=== PATIENT | female | born 1975 | race Caucasian/White ===

== ENCOUNTER 2017-12-08 12:42 | Emergency (ER) | payer MEDICAID ==
[~2017-12-08] VITALS: Ht 175.3 cm; Wt 97.1 kg
[~2017-12-08 12:42] MED LIST: AZITHROMYCIN250 MG ORAL; BCP; CYCLOBENZAPRINE10 MG ORAL; IBUPROFEN600 MG ORAL
[2017-12-08 12:55] VITALS: BP 110/69
[2017-12-08] MEDS ORDERED: TYLENOL EXTRA500 MG ORAL (13:07)
[2017-12-08] MEDS ORDERED: PROMETHAZI6.25 MG/1 ORAL (13:07)
[2017-12-08] MEDS ORDERED: FLUTICASONE PRO16 G1 NASAL (13:07)
[2017-12-08] MEDS ORDERED: LORATADINE10 M2 PO (13:07)
--- NOTE | 2017-12-08 13:07 | Emergency Room Report ---
History of Present Illness General Chief Complaint: Flu Like Symptoms Source: Patient Present Illness HPI 42-year-old female patient presents ER complaining of runny nose, cough, sore throat for the past few days. Reports that initially began as allergy symptoms with runny nose and progressed to cough with sputum, and sore throat. Reports HUDSON symptoms recently, denies vision changes, reports pain in sinuses causing HUDSON. Denies vertigo. Reports hx of allergies. Denies fever. Denies contacts with similar symptoms. Denies vomiting, chest pain, shortness of breath. Denies calf pain or neck pain. Denies history of contacts with similar symptoms. Denies vomiting, diarrhea. Denies abdominal pain, dysuria, hematuria. Denies hx of asthma or IA. Allergies: Coded Allergies: NO KNOWN ALLERGIES (Unverified Allergy, Unknown, 04/21/15) Patient History Past Medical History: see triage record Last Menstrual Period: 11/27/17 Reviewed Nursing Documentation: PMH: Agreed; PSxH: Agreed Nursing Documentation-PMH Past Medical History: No Stated History Review of Systems All Other Systems: negative except mentioned in HPI Physical Exam Vital Signs Date Time Temp Pulse Resp B/P (MAP) Pulse Ox O2 Delivery O2 Flow Rate FiO2 12/08/17 12:45 97.8 78 15 110/69 95 Room Air 97.9 Sp02 EP Interpretation: reviewed, normal General Appearance: well appearing, no apparent distress, alert, GCS 15, non- toxic Head: normocephalic, atraumatic Eyes: bilateral eye normal inspection, bilateral eye PERRL ENT: hearing grossly normal, normal pharynx, no angioedema, normal voice, TMs + canals normal, uvula midline, moist mucus membranes, nasal congestion Neck: full range of motion Respiratory: lungs clear, normal breath sounds, no rhonchi, no respiratory distress, no accessory muscle use, no wheezing, speaking full sentences Cardiovascular #1: regular rate, rhythm, no edema Gastrointestinal: non tender, soft, no mass, non-distended, no guarding, no rebound Genitourinary: no CVA tenderness Musculoskeletal: back normal, digits/nails normal, gait/station normal, normal range of motion, non-tender, no calf tenderness, Everardo's Sign negative Neurologic: alert, oriented x3, responsive, motor strength/tone normal, sensory intact Psychiatric: mood/affect normal Skin: no rash Lymphatic: no adenopathy Medical Decision Making PA Attestation Dr. Javier is my supervising Physician whom patient management has been discussed with. Diagnostic Impression: Primary Impression: Upper respiratory infection ER Course Pt presents to ED c/o sore throat, cough, headache. DDX considered but are not limited to influenza, viral URI, pneumonia, strep throat, rhinitis, sinusitis, otitis media. VITAL SIGNS are WNL, patient is afebrile. ER COURSE: Lungs clear to auscultation, no wheezes, rhonci or rales. patient afebrile. Low suspicion for pneumonia, will not order CXR at this time. no tonsillar exudates, no pharyngeal erythema, history of cough, no fever, no stridor, uvula midline, low suspicion for peritonsillar abscess. Likely viral etiology of symptoms. Symptomatic treatment. drink plenty of fluids. Salt water gargles for sore throat. Followup with PCP for further treatment and/or referral as needed. DISCHARGE: -Rx given for Claritin -Rx given for Tylenol/Acetaminophen -Rx given for Promethazine syrup for cough sx. -Rx given for fluticasone At this time pt is stable for d/c to home. Patient is resting comfortably, in no acute distress, nontoxic appearing. Patient to take medications as instructed Will provide with patient care instructions and any necessary prescriptions. Care plan and follow-up instructions provided. Patient instructed to follow-up with primary care provider in 3 - 5 days. Patient questions asked and answered. Patient reports understanding and agreement to treatment plan. ER precautions given. Patient instructed to return to ER immediately for any new or worsening of symptoms including but not limited to increasing SOB, persistent fever, intractable vomiting. - Please note that this Emergency Department Report was dictated using [employer] hand technology software, occasionally this can lead to erroneous entry secondary to interpretation by the dictation equipment. Last Vital Signs Date Time Temp Pulse Resp B/P (MAP) Pulse Ox O2 Delivery O2 Flow Rate FiO2 12/08/17 12:55 78 15 Room Air 12/08/17 12:55 97.9 110/69 98 97.9 Disposition: HOME, SELF-CARE Condition: Stable Scripts Fluticasone Propionate* (FLUTICASONE PROPIONATE*) 16 Gm [place].susp 1 SPRAY NASAL TWICE A DAY, #16 GM Prov: NimoCarlos 12/08/17 Promethazine Hcl (PROMETHAZINE HCL*) 6.25 Mg/5 Ml Syrup 5 ML ORAL Q8H, #120 ML 0 Refills Prov: Carlos Suero 12/08/17 Loratadine (LORATADINE) 10 Mg Tablet 10 MG PO DAILY, #30 TAB Prov: Carlos Suero 12/08/17 Acetaminophen* (TYLENOL EXTRA STRENGTH*) 500 Mg Tablet 500 MG ORAL Q8H PRN for Prn Headache/Temp > 101, #30 TAB 0 Refills Prov: Carlos Suero 12/08/17 Patient Instructions: Allergies, [id number], Cough, Adult, [id number], Sore Throat, Owui-pj-Lusp, Upper Respiratory Infection, Adult, Diyi-av-Cjoo Additional Instructions: Followup with primary care provider in 3 -5 days. Take medications as directed. Patient questions asked and answered. ER precautions given, patient instructed to return to ER immediately for any new or worsening of symptoms. Carlos Suero Dec 08, 2017 13:07
[2017-12-08 13:12] VITALS: BP 110/69
== END 2017-12-08 13:12 | disposition home or self-care (01) ==
LOC: EMR 13:05
DX: J06.9 Acute upper respiratory infection, unspecified (principal)
CPT/HCPCS: 99284

== ENCOUNTER 2018-01-19 08:38 | Emergency (ER) | payer MEDICAID ==
[~2018-01-19] VITALS: Ht 175.3 cm; Wt 95.3 kg
[~2018-01-19 08:38] MED LIST changes: +FLUTICASONE PRO16 G1 NASAL; +LORATADINE10 M2 PO; +PROMETHAZI6.25 MG/1 ORAL; +TYLENOL EXTRA500 MG ORAL
[2018-01-19] MEDS ORDERED: MULTIVITAMINS1 EAC8 ORAL (08:54)
--- NOTE | 2018-01-19 08:57 | Emergency Room Report ---
History of Present Illness General Chief Complaint: Chest Pain Source: Patient Present Illness HPI Patient presents with complaints of pain to the left sternal border mid chest area that has been off-and-on over the past 3 days Patient reports that she is pain-free at this time She reports that when she was getting in arguments with her the pain would come on And slowly dissipate Denies any pleurisy or shortness of breath denies any vomiting or diarrhea denies any back or flank pain Allergies: Coded Allergies: NO KNOWN ALLERGIES (Unverified Allergy, Unknown, 04/21/15) Patient History Past Medical History: see triage record Pertinent Family History: none Last Menstrual Period: 1st week of Sep Reviewed Nursing Documentation: PMH: Agreed; PSxH: Agreed Nursing Documentation-PMH Past Medical History: No Stated History Review of Systems All Other Systems: negative except mentioned in HPI Physical Exam Vital Signs Date Time Temp Pulse Resp B/P (MAP) Pulse Ox O2 Delivery O2 Flow Rate FiO2 01/19/18 08:45 98.3 73 14 108/67 98 Room Air 98.2 Sp02 EP Interpretation: reviewed, normal General Appearance: well appearing, no apparent distress Head: normocephalic, atraumatic Eyes: bilateral eye PERRL, bilateral eye EOMI ENT: hearing grossly normal, normal pharynx, TMs + canals normal, uvula midline Neck: full range of motion, supple, no meningismus, no bony tend Respiratory: lungs clear, normal breath sounds, no rhonchi, no respiratory distress, no retraction, no accessory muscle use Cardiovascular #1: normal peripheral pulses, regular rate, rhythm, no edema, no gallop, no JVD, no murmur Gastrointestinal: normal bowel sounds, non tender, soft, no mass, no organomegaly, non-distended, no guarding, no hernia, no pulsatile mass, no rebound Genitourinary: no CVA tenderness Musculoskeletal: normal inspection Neurologic: oriented x3, responsive, sales consulting director III-XII nml as tested, motor strength/ tone normal, sensory intact Psychiatric: mood/affect normal Skin: normal color, no rash, warm/dry, palpation normal Lymphatic: normal inspection, no adenopathy Medical Decision Making Diagnostic Impression: Primary Impression: Chest pain ER Course Patient is a fairly complex patient with multiple differential to consideration including but not limited to cardiac cardiopulmonary and vascular emergencies Patient's EKG and blood work is appropriate patient remains Asymptomatic in the emergency room And at this time stable for initial conservative outpatient follow-up Labs Test 01/19/18 09:00 White Blood Count 8.9 K/UL (4.8-10.8) Red Blood Count 4.66 M/UL (4.20-5.40) Hemoglobin 14.1 G/DL (12.0-16.0) Hematocrit 41.6 % (37.0-47.0) Mean Corpuscular Volume 89 FL (80-99) Mean Corpuscular Hemoglobin 30.2 PG (27.0-31.0) Mean Corpuscular Hemoglobin Concent 33.8 G/DL (32.0-36.0) Red Cell Distribution Width 11.5 % (11.6-14.8) Platelet Count 230 K/UL (150-450) Mean Platelet Volume 8.6 FL (6.5-10.1) Neutrophils (%) (Auto) 63.2 % (45.0-75.0) Lymphocytes (%) (Auto) 24.2 % (20.0-45.0) Monocytes (%) (Auto) 6.7 % (1.0-10.0) Eosinophils (%) (Auto) 4.9 % (0.0-3.0) Basophils (%) (Auto) 0.9 % (0.0-2.0) Sodium Level 140 MMOL/L (136-145) Potassium Level 3.5 MMOL/L (3.5-5.1) Chloride Level 107 MMOL/L (98-107) Carbon Dioxide Level 24 MMOL/L (21-32) Anion Gap 9 mmol/L (5-15) Blood Urea Nitrogen 18 mg/dL (7-18) Creatinine 0.7 MG/DL (0.55-1.30) Estimat Glomerular Filtration Rate > 60 mL/min (>60) Glucose Level 99 MG/DL (74-106) Calcium Level 8.8 MG/DL (8.5-10.1) Total Bilirubin 0.4 MG/DL (0.2-1.0) Aspartate Amino Transf (AST/SGOT) 15 U/L (15-37) Alanine Aminotransferase (ALT/SGPT) 24 U/L (12-78) Alkaline Phosphatase 97 U/L (46-116) Total Creatine Kinase 62 U/L (26-308) Creatine Kinase MB 1.3 NG/ML (0.0-3.6) Creatine Kinase MB Relative Index 2.0 Troponin I 0.000 ng/mL (0.000-0.056) Total Protein 7.3 G/DL (6.4-8.2) Albumin 3.2 G/DL (3.4-5.0) Globulin 4.1 g/dL Albumin/Globulin Ratio 0.8 (1.0-2.7) EKG Diagnostic Results Rate: normal Rhythm: NSR ST Segments: no acute changes Rhythm Strip Diag. Results EP Interpretation: yes Rate: 67 Rhythm: NSR, no PVC's, no ectopy Last Vital Signs Date Time Temp Pulse Resp B/P (MAP) Pulse Ox O2 Delivery O2 Flow Rate FiO2 01/19/18 08:45 98.3 73 14 108/67 98 Room Air 98.2 Status: improved Disposition: HOME, SELF-CARE Condition: Improved Additional Instructions: Patient is provided with the discharge instructions notified to follow up with primary doctor in the next 2-3 days otherwise return to the er with any worsening symptoms. Please note that this report is being documented using [employer] technology. This can lead to erroneous entry secondary to incorrect interpretation by the dictating instrument. Lindy Rodriguez DO Jan 19, 2018 08:57
[2018-01-19 09:45] LABS: BASOPHILS % (AUTO) 0.9 % (0.0-2.0); EOSINOPHILS % (AUTO) 4.9 % (0.0-3.0); HEMATOCRIT 41.6 % (37.0-47.0); HEMOGLOBIN 14.1 G/DL (12.0-16.0); LYMPHOCYTES % (AUTO) 24.2 % (20.0-45.0); MEAN CORPUSCULAR VOLUME 89 FL (80-99); MONOCYTES % (AUTO) 6.7 % (1.0-10.0); NEUTROPHILS % (AUTO) 63.2 % (45.0-75.0); PLATELET COUNT 230 K/UL (150-450); RED BLOOD COUNT 4.66 M/UL (4.20-5.40); RED CELL DISTRIBUTION WIDTH 11.5 % (11.6-14.8); WHITE BLOOD COUNT 8.9 K/UL (4.8-10.8)
[2018-01-19 09:47] LABS: ANION GAP 9 mmol/L (5-15); BLOOD UREA NITROGEN 18 mg/dL (7-18); CALCIUM 8.8 MG/DL (8.5-10.1); CARBON DIOXIDE 24 MMOL/L (21-32); CHLORIDE 107 MMOL/L (98-107); CREATININE 0.7 MG/DL (0.55-1.30); POTASSIUM 3.5 MMOL/L (3.5-5.1); SODIUM 140 MMOL/L (136-145)
[2018-01-19 10:00] LABS: ALANINE AMINOTRANSFERASE 24 U/L (12-78); ALBUMIN 3.2 G/DL (3.4-5.0); ALBUMIN/GLOBULIN RATIO 0.8 (1.0-2.7); ALKALINE PHOSPHATASE 97 U/L (46-116); ASPARTATE AMINO TRANSFERASE 15 U/L (15-37); BILIRUBIN,TOTAL 0.4 MG/DL (0.2-1.0); CKMB 1.3 NG/ML (0.0-3.6); CREATINE KINASE 62 U/L (26-308)
[2018-01-19 10:03] VITALS: BP 116/45
[2018-01-19 10:10] VITALS: BP 116/45
--- NOTE | 2018-01-20 19:56 | Cardiology Report ---
APPROVED REPORT EKG Measurement Heart [id number] Normal sinus rhythm Nonspecific ST abnormality Abnormal ECG
== END 2018-01-19 10:10 | disposition home or self-care (01) ==
LOC: EMR 09:17
DX: R07.9 Chest pain, unspecified (principal)
CPT/HCPCS: 36415; 80053; 82550; 82553; 84484; 85025; 93005; 99284

== ENCOUNTER 2018-05-28 17:54 | Emergency (ER) | payer MEDICAID ==
[~2018-05-28] VITALS: Ht 175.3 cm; Wt 77.1 kg
[~2018-05-28 17:54] MED LIST changes: +MULTIVITAMINS1 EAC8 ORAL
[2018-05-28] MEDS ORDERED: NKM (18:17)
[2018-05-28] MEDS ORDERED: TESSALON PERLE100 MG ORAL (18:38)
--- NOTE | 2018-05-28 18:38 | Emergency Room Report ---
History of Present Illness General Chief Complaint: Upper Respiratory Illness Source: Patient Present Illness HPI 42-year-old female patient presents the ER complaining of cough with sputum for the past 3 days. Denies hemoptysis. Denies chest pain or shortness of breath. Denies fever. Denies other aggravating or relieving factors. States not been taking any medication for relief of symptoms. Reports sick contacts at home. Denies neck pain. Denies calf pain. Denies recent travel. Denies smoking. Denies taking control medications. Denies sore throat, earache. Denies other symptoms. Denies history of asthma. Denies history of heart disease. Denies dizziness. Allergies: Coded Allergies: NO KNOWN ALLERGIES (Unverified Allergy, Unknown, 04/21/15) Patient History Past Medical History: see triage record Reviewed Nursing Documentation: PMH: Agreed; PSxH: Agreed Nursing Documentation-PMH Past Medical History: No Stated History Review of Systems All Other Systems: negative except mentioned in HPI Physical Exam Vital Signs Date Time Temp Pulse Resp B/P (MAP) Pulse Ox O2 Delivery O2 Flow Rate FiO2 05/28/18 18:14 98.1 62 17 95/60 98 Room Air Sp02 EP Interpretation: reviewed, normal General Appearance: well appearing, no apparent distress, alert, GCS 15, non- toxic Head: normocephalic, atraumatic Eyes: bilateral eye normal inspection, bilateral eye PERRL ENT: hearing grossly normal, normal pharynx, no angioedema, normal voice, uvula midline, moist mucus membranes Neck: full range of motion, no bony tend Respiratory: lungs clear, normal breath sounds, no rhonchi, no respiratory distress, no accessory muscle use, no wheezing, speaking full sentences Cardiovascular #1: regular rate, rhythm, no edema Musculoskeletal: back normal, digits/nails normal, gait/station normal, normal range of motion, non-tender, no calf tenderness, Everardo's Sign negative Neurologic: alert, oriented x3, responsive, motor strength/tone normal, sensory intact Psychiatric: mood/affect normal Skin: no rash Medical Decision Making PA Attestation Dr. Javier is my supervising Physician whom patient management has been discussed with. Diagnostic Impression: Primary Impression: Cough ER Course Pt presents to ED c/o cough times 3 days. DDX considered but are not limited to influenza, viral URI, pneumonia, strep throat, rhinitis, sinusitis, otitis media, otitis externa. VITAL SIGNS are WNL, patient is afebrile. ER COURSE: Lungs clear to auscultation, no wheezes, rhonci or rales. patient afebrile. Low suspicion for pneumonia, will not order CXR at this time. no tonsillar exudates, no pharyngeal erythema, history of cough, no fever, no stridor, uvula midline, low suspicion for peritonsillar abscess. Likely viral etiology of symptoms. Symptomatic treatment. drink plenty of fluids. Salt water gargles for sore throat. Followup with PCP for further treatment and/or referral as needed. DISCHARGE: -Rx given for Tessalon Perles At this time pt is stable for d/c to home. Patient is resting comfortably, in no acute distress, nontoxic appearing. Patient to take medications as instructed Will provide with patient care instructions and any necessary prescriptions. Care plan and follow-up instructions provided. Patient instructed to follow-up with primary care provider in 3 - 5 days. Patient questions asked and answered. Patient reports understanding and agreement to treatment plan. ER precautions given. Patient instructed to return to ER immediately for any new or worsening of symptoms including but not limited to increasing SOB, persistent fever, intractable vomiting. - Please note that this Emergency Department Report was dictated using [employer] sales clerk technology software, occasionally this can lead to erroneous entry secondary to interpretation by the dictation equipment. Last Vital Signs Date Time Temp Pulse Resp B/P (MAP) Pulse Ox O2 Delivery O2 Flow Rate FiO2 05/28/18 18:14 98.1 62 17 95/60 98 Room Air Disposition: HOME, SELF-CARE Condition: Stable Scripts Benzonatate* (TESSALON PERLE*) 100 Mg Capsule 100 MG ORAL THREE TIMES A DAY, #20 PERLE Prov: Carlos Suero 05/28/18 Patient Instructions: Cough, Pediatric, [id number], Upper Respiratory Infection, Adult Additional Instructions: Followup with primary care provider in 3 -5 days. Take medications as directed. Take [id number] Tylenol or Motrin for pain and fever symptoms present. Patient questions asked and answered. ER precautions given, patient instructed to return to ER immediately for any new or worsening of symptoms. Carlos Suero May 28, 2018 18:38
[2018-05-28 18:43] VITALS: BP 95/60
--- NOTE | 2018-05-28 18:44 | NUR ---
ED Nurse Note:pt. came with coughing for 3 days no c/o pain no fever
[2018-05-28 19:06] VITALS: BP 95/60
--- NOTE | 2018-05-28 19:07 | NUR ---
ED Nurse Note: Pt is cleared for discharge per ER PA Discharge instrcution/paper/ prescription given and explained to the patient, patient verbalized understanding. pt is alert and oriented x4, ambulated out of ED steady gait with all belongigns. pt is stable for DC. VSS. pt ID band removed.
== END 2018-05-28 18:56 | disposition home or self-care (01) ==
LOC: EMR 18:37
DX: R05 Cough (principal)
CPT/HCPCS: 99282

== ENCOUNTER 2019-04-20 07:54 | Emergency (ER) | payer MEDICAID ==
[~2019-04-20] VITALS: Ht 175.3 cm; Wt 99.8 kg
[~2019-04-20 07:54] MED LIST changes: +NKM; +TESSALON PERLE100 MG ORAL
--- NOTE | 2019-04-20 08:07 | NUR ---
ED Nurse Note: Pt walked in from home c/o 8/10 pain and swelling on joints including hands, feet, and knees. Vital signs stable as documented. Respirations even and unlabored on room air.
[2019-04-20 08:18] VITALS: BP 97/59
[2019-04-20] MEDS ORDERED: NAPROXEN500 M2 ORAL ×3 (08:42→09:14)
[2019-04-20] MEDS ORDERED: Ketorolac 30mg Inj IM ONE (08:45)
--- NOTE | 2019-04-20 09:10 | Emergency Room Report ---
History of Present Illness General Chief Complaint: Pain Source: Patient Present Illness HPI 43-year-old female presents ED for evaluation. Patient pain in her joints in her hands and feet. Started this morning. Throbbing, 7 out of 10, nonradiating. Denies any recent fall or injury. States that she had similar pain in the past. Was told that she has arthritis. Does not take any medications at this time. No other aggravating relieving factors. Denies any other associated symptoms Allergies: Coded Allergies: NO KNOWN ALLERGIES (Unverified Allergy, Unknown, 04/21/15) Patient History Past Medical History: none Past Surgical History: none Pertinent Family History: none Social History: Denies: smoking, alcohol use, drug use Last Menstrual Period: 3 weeks ago Now: No Immunizations: UTD Reviewed Nursing Documentation: PMH: Agreed; PSxH: Agreed Nursing Documentation-PMH Past Medical History: No History, Except For Review of Systems All Other Systems: negative except mentioned in HPI Physical Exam Vital Signs Date Time Temp Pulse Resp B/P (MAP) Pulse Ox O2 Delivery O2 Flow Rate FiO2 04/20/19 08:08 97.5 71 16 97/59 (72) 98 Room Air Sp02 EP Interpretation: reviewed, normal General Appearance: no apparent distress, alert, GCS 15, non-toxic Head: normocephalic, atraumatic Eyes: bilateral eye normal inspection, bilateral eye PERRL ENT: hearing grossly normal, normal pharynx, no angioedema, normal voice Neck: full range of motion, supple/symm/no masses Respiratory: chest non-tender, lungs clear, normal breath sounds, speaking full sentences Cardiovascular #1: regular rate, rhythm, no edema Cardiovascular #2: 2+ carotid (R), 2+ carotid (L), 2+ radial (R), 2+ radial (L) , 2+ dorsalis pedis (R), 2+ dorsalis pedis (L) Gastrointestinal: normal bowel sounds, non tender, soft, non-distended, no guarding, no rebound Rectal: deferred Genitourinary: normal inspection, no CVA tenderness Musculoskeletal: back normal, normal range of motion, gait/station normal, swelling - swelling to fingers, hands bilateral extremities Neurologic: alert, motor strength/tone normal, oriented x3, sensory intact, responsive, speech normal Psychiatric: judgement/insight normal, memory normal, mood/affect normal, no suicidal/homicidal ideation Reflexes: 3+ bicep (R), 3+ bicep (L), 3+ tricep (R), 3+ tricep (L), 3+ knee (R) , 3+ knee (L) Lymphatic: no adenopathy Medical Decision Making Diagnostic Impression: Primary Impression: Joint pain Qualified Codes: M25.50 - Pain in unspecified joint ER Course Hospital Course 43-year-old female presents to ED complaining of bilateral joint pain, no trauma Differential diagnoses include: Fracture, dislocation, sprain, contusion, bursitis Clinical course Patient placed on stretcher. After initial history, physical exam reveals an middle-aged female in no acute distress. There is swelling to the joints in the fingers of both hands bilaterally. There is no limited range of movement. No erythema. No crepitus. Patient describes similar pain in her feet but the swelling is not appreciable. I discussed the findings with the patient. No indication for imaging at this time as there was no trauma. Likely arthritis. Given Toradol in ED. Recommend close follow-up with orthopedics. I will provide referrals Diagnosis - joint pain stable and discharged to home with prescription for Naprosyn. Followup with PMD /ortho. Return to ED if symptoms recur or worsen Last Vital Signs Date Time Temp Pulse Resp B/P (MAP) Pulse Ox O2 Delivery O2 Flow Rate FiO2 04/20/19 08:18 97.5 83 16 97/59 98 Room Air Status: improved Disposition: HOME, SELF-CARE Condition: Stable Scripts Naproxen* (NAPROXEN*) 500 Mg Tablet 500 MG ORAL TWICE A WEEK for 10 Days, #60 TAB 0 Refills Prov: Avinash Ramos MD 04/20/19 Referrals: NON PHYSICIAN (PCP) [facility] Open 24 hour /7 days a week by Appointment Only [address] [facility] [address] [facility] [address] [facility] [address] Patient Instructions: Arthritis, [id number] Avinash Ramos MD Apr 20, 2019 09:10
[2019-04-20 09:17] VITALS: BP 94/62
--- NOTE | 2019-04-20 09:24 | NUR ---
ER DISCHARGE NOTE:Patient is cleared to be discharged per ERMD, pt is aox4, on room air, with stable vital signs as documented. pt was given dc and prescription instructions, pt was able to verbalize understanding, pt id band removed. pt is able to ambulate with steady gait. pt took all belongings
== END 2019-04-20 09:25 | disposition home or self-care (01) ==
LOC: EMR 08:15
DX: M25.542 Pain in joints of left hand (principal); M25.541 Pain in joints of right hand; M25.572 Pain in left ankle and joints of left foot; M25.571 Pain in right ankle and joints of right foot
CPT/HCPCS: 96372; J1885; Z7502; 99283